=== PATIENT | female | born 1955 | race Caucasian/White ===

== ENCOUNTER 2017-02-17 12:55 | Inpatient (IN) | payer OTHER ==
[~2017-02-17] VITALS: Ht 149.9 cm; Wt 57.9 kg
[2017-02-17] MEDS ORDERED: SODIUM CHLORIDE 0.9% 1,000 ML IV ONE (13:56)
[2017-02-17] MEDS ORDERED: LORazepam 2 MG/ML, 1ML IVPush PRN (14:00)
[2017-02-17] MEDS ORDERED: ONDANSETRON 2MG/ML, 2ML IVPush ONE (14:00)
[2017-02-17] MEDS ORDERED: SODIUM CHLORIDE FLUSH 10ML SYR IVF ONE (14:00)
[2017-02-17] MEDS ORDERED: THIAMINE 100 MG in SODIUM CHLORIDE 0.9% 50 ML IVPB ONE (14:30)
[2017-02-17] MEDS ORDERED: ONDANSETRON ODT 4 MG ONE (14:51)
[2017-02-17] MEDS ORDERED: THIAMINE 100MG TABLET ONE (14:51)
[2017-02-17] MEDS ORDERED: LORazepam 1MG TABLET ONE (14:52)
[2017-02-17 14:53] LABS: HEMATOCRIT 34.8 % (34.6-47.8); HEMOGLOBIN 11.9 g/dL (11.7-16.4); WHITE BLOOD COUNT 6.8 x10^3/uL (3.4-10)
[2017-02-17] MEDS ORDERED: ONDANSETRON ODT 4 MG PO ONE (15:00)
[2017-02-17] MEDS ORDERED: LORazepam 1MG TABLET PO ONE (15:00)
[2017-02-17] MEDS ORDERED: THIAMINE 100MG TABLET PO ONE (15:00)
[2017-02-17 15:48] LABS: ASPARTATE AMINO TRANSFERASE 128 U/L (15-37); BLOOD UREA NITROGEN 10 mg/dL (7-18)
[2017-02-17] MEDS ORDERED: POTASSIUM CHLORIDE 40 MEQ in SODIUM CHLORIDE 0.9% 1,000 ML IV ONE (16:20)
[2017-02-17] MEDS ORDERED: D5 IV SCH (16:59)
[2017-02-17] MEDS ORDERED: NACL IV SCH (16:59)
[2017-02-17] MEDS ORDERED: MVI ADULT IV SCH (16:59)
[2017-02-17] MEDS ORDERED: MAGNESIUM SULFATE IV SCH (16:59)
[2017-02-17] MEDS ORDERED: ENALAPRILAT 1.25 MG/ML, 2ML IVPush PRN (17:00)
[2017-02-17] MEDS ORDERED: POLYETHYLENE GLYCOL 17 GM PACKET PO PRN (17:00)
[2017-02-17] MEDS ORDERED: DOCUSATE 100 MG CAPSULE PO PRN (17:00)
[2017-02-17] MEDS ORDERED: ONDANSETRON 2MG/ML, 2ML IVPush PRN (17:00)
[2017-02-17] MEDS ORDERED: SODIUM CHLORIDE FLUSH 10ML SYR IVF PRN (17:00)
[2017-02-17] MEDS ORDERED: BISACODYL 10 MG SUPP PR PRN (17:00)
[2017-02-17] MEDS ORDERED: LABETALOL 5MG/ML, 20ML IVPush PRN (17:00)
[2017-02-17 17:58] LABS: ACETAMINOPHEN < 2 mcg/mL (10-30)
[2017-02-17] MEDS: LACTATED RINGERS 1,000 ML IV SCH (19:26)
[2017-02-17 19:29] VITALS: BP 133/74
[2017-02-17] MEDS ORDERED: POTASSIUM CHLORIDE 40 MEQ in SODIUM CHLORIDE 0.9% 500 ML IV ONE (20:00)
[2017-02-18] MEDS: LACTATED RINGERS 1,000 ML IV SCH ×2 (01:00→23:26)
[2017-02-18 02:00] VITALS: BP 100/58
[2017-02-18 02:04] LABS: DAU SCREEN DISCLAIMER
[2017-02-18 05:04] LABS: HEMATOCRIT 34.4 % (34.6-47.8); HEMOGLOBIN 11.8 g/dL (11.7-16.4); WHITE BLOOD COUNT 6.3 x10^3/uL (3.4-10)
[2017-02-18 05:48] LABS: ASPARTATE AMINO TRANSFERASE 110 U/L (15-37); BLOOD UREA NITROGEN 7 mg/dL (7-18)
[2017-02-18] MEDS ORDERED: POTASSIUM CHLORIDE 40 MEQ in SODIUM CHLORIDE 0.9% 500 ML IV ONE (07:30)
[2017-02-18 08:35] VITALS: BP 101/56
[2017-02-18] MEDS: CEFTRIAXONE PMX 1GM/50ML 50 ML IV SCH (11:08)
[2017-02-18 14:30] VITALS: BP 101/57
[2017-02-18 19:54] VITALS: BP 100/63
[2017-02-19 02:45] VITALS: BP 120/72
[2017-02-19 05:11] LABS: HEMATOCRIT 32.8 % (34.6-47.8); HEMOGLOBIN 11.1 g/dL (11.7-16.4); WHITE BLOOD COUNT 5.8 x10^3/uL (3.4-10)
[2017-02-19 05:27] LABS: ASPARTATE AMINO TRANSFERASE 99 U/L (15-37); BLOOD UREA NITROGEN 4 mg/dL (7-18)
[2017-02-19] MEDS: LACTATED RINGERS 1,000 ML IV SCH ×2 (05:58→16:13)
[2017-02-19] MEDS ORDERED: LORazepam 1MG TABLET ONE (06:15)
[2017-02-19] MEDS ORDERED: LORazepam 0.5MG TABLET PO ONE (06:30)
[2017-02-19 08:50] VITALS: BP 118/69
[2017-02-19] MEDS ORDERED: GABAPENTIN 300 MG CAPSULE PO ONE (11:00)
[2017-02-19] MEDS: CHLORDIAZEPOXIDE 25 MG CAPSULE PO SCH (11:41)
[2017-02-19] MEDS: CEFTRIAXONE PMX 1GM/50ML 50 ML IV SCH (11:54)
[2017-02-19 15:30] VITALS: BP 101/67
[2017-02-19] MEDS: GABAPENTIN 300 MG CAPSULE PO SCH ×2 (16:12→20:22)
[2017-02-19 20:03] VITALS: BP 102/69
[2017-02-20 02:28] VITALS: BP 97/65
[2017-02-20] MEDS: LACTATED RINGERS 1,000 ML IV SCH ×2 (05:51→21:01)
[2017-02-20 06:29] LABS: HEMATOCRIT 32.5 % (34.6-47.8); WHITE BLOOD COUNT 6.2 x10^3/uL (3.4-10)
[2017-02-20 06:42] LABS: BLOOD UREA NITROGEN 5 mg/dL (7-18)
[2017-02-20 06:43] VITALS: BP 86/46
[2017-02-20 06:47] LABS: ASPARTATE AMINO TRANSFERASE 93 U/L (15-37)
[2017-02-20] MEDS ORDERED: SODIUM CHLORIDE 0.9% 1,000ML IVBOLUS ONE (07:30)
[2017-02-20 08:33] VITALS: BP 89/61
[2017-02-20] MEDS: CHLORDIAZEPOXIDE 25 MG CAPSULE PO SCH (09:00)
[2017-02-20] MEDS: GABAPENTIN 300 MG CAPSULE PO SCH ×3 (09:49→20:59)
[2017-02-20] MEDS: CEFTRIAXONE PMX 1GM/50ML 50 ML IV SCH (11:44)
[2017-02-20 11:55] VITALS: BP 101/68
[2017-02-20 14:40] VITALS: BP 115/44
[2017-02-20] MEDS ORDERED: LORazepam 1MG TABLET PO PRN ×3 (16:30)
[2017-02-20] MEDS ORDERED: LORazepam 2 MG/ML, 1ML IV PRN ×5 (16:30)
[2017-02-20] MEDS ORDERED: MAGNESIUM SULFATE PMX 2GM/50ML 50 ML IV ONE (17:00)
[2017-02-20] MEDS: LORazepam 1MG TABLET PO PRN (17:28)
[2017-02-20] MEDS: FOLIC ACID 1 MG TABLET PO SCH (17:28)
[2017-02-20] MEDS: THIAMINE 100 MG/ML, 2ML IM SCH (17:28)
[2017-02-20] MEDS: MULTIVITAMIN 1 TABLET PO SCH (17:28)
[2017-02-20 18:46] VITALS: BP 110/72
[2017-02-20] MEDS ORDERED: IBUPROFEN 200 MG TABLET PO PRN (19:00)
[2017-02-20] MEDS: LACTULOSE 20 GM/30 ML UDC PO SCH (21:00)
[2017-02-20] MEDS: ALBUMIN HUMAN 25% 100 ML IV SCH (21:00)
[2017-02-21 01:43] VITALS: BP 94/64
[2017-02-21] MEDS ORDERED: METRONIDAZOLE PMX 500MG/100ML 100 ML IV SCH (03:00)
[2017-02-21] MEDS: ALBUMIN HUMAN 25% 100 ML IV SCH ×4 (03:22→22:08)
[2017-02-21 05:53] LABS: HEMATOCRIT 28.8 % (34.6-47.8); HEMOGLOBIN 9.8 g/dL (11.7-16.4); WHITE BLOOD COUNT 8.4 x10^3/uL (3.4-10)
[2017-02-21 05:59] LABS: BLOOD UREA NITROGEN 6 mg/dL (7-18)
[2017-02-21 06:03] LABS: ASPARTATE AMINO TRANSFERASE 72 U/L (15-37)
[2017-02-21 06:58] VITALS: BP 88/56
[2017-02-21] MEDS: LACTULOSE 20 GM/30 ML UDC PO SCH ×2 (09:41→21:00)
[2017-02-21] MEDS: MULTIVITAMIN 1 TABLET PO SCH (09:41)
[2017-02-21] MEDS: FOLIC ACID 1 MG TABLET PO SCH (09:41)
[2017-02-21] MEDS: GABAPENTIN 300 MG CAPSULE PO SCH ×3 (09:41→21:00)
[2017-02-21] MEDS: THIAMINE 100 MG/ML, 2ML IM SCH (09:43)
[2017-02-21] MEDS ORDERED: POTASSIUM CHLORIDE 20 MEQ TAB.ER.PRT PO ONE (10:00)
[2017-02-21] MEDS: metroNIDAZOLE 500 MG TABLET PO SCH ×3 (11:12→21:00)
[2017-02-21] MEDS: LACTATED RINGERS 1,000 ML IV SCH (11:13)
[2017-02-21] MEDS: LORazepam 0.5MG TABLET PO PRN ×2 (11:51→23:02)
[2017-02-21] MEDS: LORazepam 1MG TABLET PO PRN (11:51)
[2017-02-21 13:26] VITALS: BP 112/72
[2017-02-21] MEDS: ERGOCALCIFEROL 50,000 UNIT CAPSULE PO SCH (17:11)
[2017-02-21 18:51] VITALS: BP 111/71
[2017-02-21 21:46] VITALS: BP 89/57
[2017-02-21] MEDS ORDERED: SODIUM CHLORIDE 0.9%, 500ML IVBOLUS ONE (22:00)
[2017-02-21] MEDS ORDERED: FUROSEMIDE 20 MG/2 ML IV ONE (22:00)
[2017-02-21 23:04] VITALS: BP 115/71
[2017-02-22] MEDS: LACTATED RINGERS 1,000 ML IV SCH ×2 (00:09→13:32)
[2017-02-22 01:38] VITALS: BP 98/64
[2017-02-22 04:55] VITALS: BP 94/59
[2017-02-22 07:03] VITALS: BP 93/59
[2017-02-22 09:03] LABS: BLOOD UREA NITROGEN 8 mg/dL (7-18)
[2017-02-22 09:14] LABS: HEMATOCRIT 31.9 % (34.6-47.8); HEMOGLOBIN 10.7 g/dL (11.7-16.4)
[2017-02-22] MEDS: FUROSEMIDE 20 MG TABLET PO SCH (09:29)
[2017-02-22] MEDS: GABAPENTIN 300 MG CAPSULE PO SCH ×3 (09:29→22:00)
[2017-02-22] MEDS: FOLIC ACID 1 MG TABLET PO SCH (09:29)
[2017-02-22] MEDS: metroNIDAZOLE 500 MG TABLET PO SCH ×3 (09:29→22:00)
[2017-02-22] MEDS: THIAMINE 100 MG/ML, 2ML IM SCH (09:30)
[2017-02-22] MEDS: LORazepam 0.5MG TABLET PO PRN (09:32)
[2017-02-22] MEDS: LACTOBACILLUS CHEW TABLET PO SCH ×3 (09:38→22:00)
[2017-02-22] MEDS: MULTIVITAMIN 1 TABLET PO SCH (09:45)
[2017-02-22] MEDS: PANTOPROZOLE 40MG TABLET PO SCH ×2 (11:05→22:00)
[2017-02-22 12:25] LABS: OCCBLD OBC PASS
[2017-02-22 12:44] VITALS: BP 97/65
[2017-02-22] MEDS ORDERED: FUROSEMIDE 20 MG/2 ML IV ONE (14:00)
[2017-02-22] MEDS ORDERED: FUROSEMIDE 40 MG/4 ML ONE (14:22)
[2017-02-22 15:24] LABS: HEMATOCRIT 29.9 % (34.6-47.8); HEMOGLOBIN 10.2 g/dL (11.7-16.4)
[2017-02-22] MEDS ORDERED: ALBUTEROL/IPRATROPIUM 2.5MG/0.5MG, 3 ML NPPB PRN (16:30)
[2017-02-22 18:43] VITALS: BP 108/70
[2017-02-23 00:22] VITALS: BP 119/73
[2017-02-23 05:33] LABS: HEMATOCRIT 30.2 % (34.6-47.8); HEMOGLOBIN 10.4 g/dL (11.7-16.4); WHITE BLOOD COUNT 11.9 x10^3/uL (3.4-10)
[2017-02-23 05:56] LABS: ASPARTATE AMINO TRANSFERASE 64 U/L (15-37); BLOOD UREA NITROGEN 9 mg/dL (7-18)
[2017-02-23 06:38] VITALS: BP 93/59
[2017-02-23] MEDS ORDERED: MAGNESIUM SULFATE PMX 4GM/100M 100 ML IV ONE (09:00)
[2017-02-23] MEDS ORDERED: POTASSIUM CHLORIDE 40 MEQ in SODIUM CHLORIDE 0.9% 500 ML IV ONE (09:30)
[2017-02-23] MEDS: MULTIVITAMIN 1 TABLET PO SCH (09:59)
[2017-02-23] MEDS: LACTULOSE 20 GM/30 ML UDC PO SCH ×2 (09:59→19:58)
[2017-02-23] MEDS: THIAMINE 100 MG/ML, 2ML IM SCH (09:59)
[2017-02-23] MEDS: metroNIDAZOLE 500 MG TABLET PO SCH ×2 (10:00→17:15)
[2017-02-23] MEDS: FOLIC ACID 1 MG TABLET PO SCH (10:00)
[2017-02-23] MEDS: GABAPENTIN 300 MG CAPSULE PO SCH (10:00)
[2017-02-23] MEDS: FUROSEMIDE 20 MG TABLET PO SCH (10:00)
[2017-02-23] MEDS: LACTOBACILLUS CHEW TABLET PO SCH ×3 (10:00→19:58)
[2017-02-23] MEDS: PANTOPROZOLE 40MG TABLET PO SCH ×2 (10:00→21:54)
[2017-02-23] MEDS: POTASSIUM CHLORIDE 20 MEQ TAB.ER.PRT PO SCH ×2 (11:32→17:15)
[2017-02-23] MEDS: LORazepam 0.5MG TABLET PO PRN (11:49)
[2017-02-23 12:25] VITALS: BP 108/65
[2017-02-23 19:36] VITALS: BP 102/68
[2017-02-23] MEDS: RIFAXIMIN 550 MG TABLET PO SCH (19:58)
[2017-02-24] MEDS: metroNIDAZOLE 500 MG TABLET PO SCH ×3 (01:20→16:58)
[2017-02-24 01:33] VITALS: BP 106/66
[2017-02-24] MEDS: LORazepam 1MG TABLET PO PRN (04:58)
[2017-02-24 05:31] LABS: HEMATOCRIT 31.4 % (34.6-47.8); HEMOGLOBIN 10.7 g/dL (11.7-16.4); WHITE BLOOD COUNT 9.3 x10^3/uL (3.4-10)
[2017-02-24 05:54] LABS: ASPARTATE AMINO TRANSFERASE 79 U/L (15-37); BLOOD UREA NITROGEN 7 mg/dL (7-18)
[2017-02-24 06:42] VITALS: BP 96/65
[2017-02-24] MEDS: LACTULOSE 20 GM/30 ML UDC PO SCH (08:24)
[2017-02-24] MEDS: FOLIC ACID 1 MG TABLET PO SCH (08:24)
[2017-02-24] MEDS: PANTOPROZOLE 40MG TABLET PO SCH ×2 (08:24→19:59)
[2017-02-24] MEDS: MULTIVITAMIN 1 TABLET PO SCH (08:24)
[2017-02-24] MEDS: LACTOBACILLUS CHEW TABLET PO SCH ×3 (08:24→19:59)
[2017-02-24] MEDS: RIFAXIMIN 550 MG TABLET PO SCH ×2 (08:24→19:59)
[2017-02-24] MEDS: FUROSEMIDE 20 MG TABLET PO SCH (08:24)
[2017-02-24] MEDS: POTASSIUM CHLORIDE 20 MEQ TAB.ER.PRT PO SCH ×2 (08:24→17:30)
[2017-02-24] MEDS: THIAMINE 100 MG/ML, 2ML IM SCH (08:25)
[2017-02-24 12:24] VITALS: BP 101/68
[2017-02-24] MEDS: ENOXAPARIN 40 MG/0.4 ML SQ SCH (14:40)
[2017-02-24 20:00] VITALS: BP 102/70
[2017-02-25] MEDS: metroNIDAZOLE 500 MG TABLET PO SCH ×3 (01:38→17:03)
[2017-02-25 02:00] VITALS: BP 94/54
[2017-02-25 05:18] LABS: HEMATOCRIT 31.1 % (34.6-47.8); HEMOGLOBIN 10.4 g/dL (11.7-16.4); WHITE BLOOD COUNT 11.3 x10^3/uL (3.4-10)
[2017-02-25 05:53] LABS: ASPARTATE AMINO TRANSFERASE 90 U/L (15-37); BLOOD UREA NITROGEN 7 mg/dL (7-18)
[2017-02-25 07:25] VITALS: BP 98/62
[2017-02-25] MEDS ORDERED: MAGNESIUM SULFATE PMX 4GM/100M 100 ML IV ONE (07:30)
[2017-02-25] MEDS: RIFAXIMIN 550 MG TABLET PO SCH ×2 (09:44→21:24)
[2017-02-25] MEDS: FOLIC ACID 1 MG TABLET PO SCH (09:44)
[2017-02-25] MEDS: POTASSIUM CHLORIDE 20 MEQ TAB.ER.PRT PO SCH ×2 (09:44→17:03)
[2017-02-25] MEDS: LACTOBACILLUS CHEW TABLET PO SCH ×3 (09:44→21:24)
[2017-02-25] MEDS: FUROSEMIDE 20 MG TABLET PO SCH (09:45)
[2017-02-25] MEDS: PANTOPROZOLE 40MG TABLET PO SCH ×2 (09:45→21:24)
[2017-02-25] MEDS: THIAMINE 100 MG/ML, 2ML IM SCH (09:45)
[2017-02-25] MEDS: LACTULOSE 20 GM/30 ML UDC PO SCH (09:45)
[2017-02-25] MEDS: MULTIVITAMIN 1 TABLET PO SCH (09:46)
[2017-02-25 12:52] VITALS: BP 97/63
[2017-02-25] MEDS: ENOXAPARIN 40 MG/0.4 ML SQ SCH (14:00)
[2017-02-25 20:31] VITALS: BP 91/63
[2017-02-26] MEDS: metroNIDAZOLE 500 MG TABLET PO SCH ×3 (01:43→18:34)
[2017-02-26 03:47] VITALS: BP 102/65
[2017-02-26 05:19] LABS: BLOOD UREA NITROGEN 6 mg/dL (7-18); HEMATOCRIT 33.2 % (34.6-47.8); HEMOGLOBIN 11.1 g/dL (11.7-16.4); WHITE BLOOD COUNT 13.1 x10^3/uL (3.4-10)
[2017-02-26 05:24] LABS: ASPARTATE AMINO TRANSFERASE 84 U/L (15-37)
[2017-02-26 08:58] VITALS: BP 90/53
[2017-02-26] MEDS: MULTIVITAMIN 1 TABLET PO SCH (09:13)
[2017-02-26] MEDS: RIFAXIMIN 550 MG TABLET PO SCH ×2 (09:13→21:00)
[2017-02-26] MEDS: FOLIC ACID 1 MG TABLET PO SCH (09:13)
[2017-02-26] MEDS: FUROSEMIDE 20 MG TABLET PO SCH (09:13)
[2017-02-26] MEDS: PANTOPROZOLE 40MG TABLET PO SCH (09:14)
[2017-02-26] MEDS: LACTOBACILLUS CHEW TABLET PO SCH ×3 (09:14→21:00)
[2017-02-26] MEDS: POTASSIUM CHLORIDE 20 MEQ TAB.ER.PRT PO SCH (09:14)
[2017-02-26] MEDS: THIAMINE 100 MG/ML, 2ML IM SCH (09:14)
[2017-02-26] MEDS: LACTULOSE 20 GM/30 ML UDC PO SCH (09:14)
[2017-02-26 13:05] VITALS: BP 102/67
[2017-02-26] MEDS: ENOXAPARIN 40 MG/0.4 ML SQ SCH (14:20)
[2017-02-26 19:15] VITALS: BP 99/65
[2017-02-27 00:34] VITALS: BP_SYST 88; BP_SYST 89; BP_DIAS 55; BP_DIAS 62
[2017-02-27] MEDS: metroNIDAZOLE 500 MG TABLET PO SCH ×3 (01:11→17:24)
[2017-02-27 07:10] VITALS: BP 93/58
[2017-02-27 07:11] LABS: HEMATOCRIT 32.5 % (34.6-47.8); HEMOGLOBIN 10.8 g/dL (11.7-16.4); WHITE BLOOD COUNT 13.8 x10^3/uL (3.4-10)
[2017-02-27 07:27] LABS: BLOOD UREA NITROGEN 7 mg/dL (7-18)
[2017-02-27] MEDS ORDERED: PANTOPROZOLE 40MG TABLET PO SCH (07:30)
[2017-02-27] MEDS: THIAMINE 100 MG/ML, 2ML IM SCH (09:00)
[2017-02-27] MEDS: LACTULOSE 20 GM/30 ML UDC PO SCH (09:46)
[2017-02-27] MEDS: FOLIC ACID 1 MG TABLET PO SCH (09:47)
[2017-02-27] MEDS: MULTIVITAMIN 1 TABLET PO SCH (09:47)
[2017-02-27] MEDS: RIFAXIMIN 550 MG TABLET PO SCH ×2 (09:47→20:15)
[2017-02-27] MEDS: LACTOBACILLUS CHEW TABLET PO SCH ×3 (09:47→20:15)
[2017-02-27] MEDS: THIAMINE 100MG TABLET PO SCH (12:00)
[2017-02-27 12:31] VITALS: BP 102/70
[2017-02-27] MEDS ORDERED: MULT1TAB60 PO (16:29)
[2017-02-27] MEDS ORDERED: METR500T PO (16:29)
[2017-02-27] MEDS ORDERED: ACID1TAB7 PO (16:29)
[2017-02-27] MEDS ORDERED: RIFA550T4 PO (16:29)
[2017-02-27] MEDS ORDERED: THIA100T6 PO (16:29)
[2017-02-27] MEDS ORDERED: LACT20SO13 PO (16:29)
[2017-02-27] MEDS ORDERED: TRAM50TA2 PO (16:29)
[2017-02-27] MEDS ORDERED: ERGO500017 PO (16:29)
[2017-02-27] MEDS ORDERED: FOLI-17 PO (16:29)
[2017-02-27] MEDS: LORazepam 1MG TABLET PO PRN (17:28)
[2017-02-27 18:30] VITALS: BP 97/64
[2017-02-28] MEDS: metroNIDAZOLE 500 MG TABLET PO SCH ×2 (00:10→07:56)
[2017-02-28 00:14] VITALS: BP 114/70
[2017-02-28] MEDS: LORazepam 1MG TABLET PO PRN (05:23)
[2017-02-28 06:18] LABS: ASPARTATE AMINO TRANSFERASE 91 U/L (15-37); BLOOD UREA NITROGEN 10 mg/dL (7-18)
[2017-02-28 06:33] LABS: HEMOGLOBIN 11.1 g/dL (11.7-16.4); WHITE BLOOD COUNT 18.4 x10^3/uL (3.4-10)
[2017-02-28] MEDS: RIFAXIMIN 550 MG TABLET PO SCH ×2 (07:56→22:47)
[2017-02-28] MEDS: FOLIC ACID 1 MG TABLET PO SCH (07:56)
[2017-02-28] MEDS: THIAMINE 100MG TABLET PO SCH (07:57)
[2017-02-28] MEDS: LACTULOSE 20 GM/30 ML UDC PO SCH (07:57)
[2017-02-28] MEDS: LACTOBACILLUS CHEW TABLET PO SCH ×4 (07:57→22:47)
[2017-02-28] MEDS: MULTIVITAMIN 1 TABLET PO SCH (07:57)
[2017-02-28 10:17] VITALS: BP 100/66
[2017-02-28 12:36] VITALS: BP 99/66
[2017-02-28] MEDS: ERGOCALCIFEROL 50,000 UNIT CAPSULE PO SCH ×2 (16:00→17:40)
[2017-02-28] MEDS: SODIUM CHLORIDE 0.9% 1,000 ML IV SCH (17:40)
[2017-02-28] MEDS: CEFTRIAXONE PMX 1GM/50ML 50 ML IV SCH (17:53)
[2017-02-28] MEDS: VANCOMYCIN 50 MG/ML ORAL SUSP PO SCH ×2 (17:53→22:47)
[2017-02-28 19:28] VITALS: BP 92/65
[2017-03-01 01:09] VITALS: BP 83/52
[2017-03-01 01:39] VITALS: BP 95/60
[2017-03-01] MEDS: VANCOMYCIN 50 MG/ML ORAL SUSP PO SCH ×4 (05:00→23:41)
[2017-03-01] MEDS: SODIUM CHLORIDE 0.9% 1,000 ML IV SCH (05:00)
[2017-03-01 05:06] LABS: HEMATOCRIT 30.9 % (34.6-47.8); HEMOGLOBIN 10.5 g/dL (11.7-16.4); WHITE BLOOD COUNT 18.3 x10^3/uL (3.4-10)
[2017-03-01 05:19] LABS: ASPARTATE AMINO TRANSFERASE 92 U/L (15-37); BLOOD UREA NITROGEN 11 mg/dL (7-18)
[2017-03-01 06:59] VITALS: BP 97/61
[2017-03-01] MEDS: FOLIC ACID 1 MG TABLET PO SCH (08:40)
[2017-03-01] MEDS: RIFAXIMIN 550 MG TABLET PO SCH ×2 (08:40→23:41)
[2017-03-01] MEDS: LACTULOSE 20 GM/30 ML UDC PO SCH (08:40)
[2017-03-01] MEDS: THIAMINE 100MG TABLET PO SCH (08:40)
[2017-03-01] MEDS: LACTOBACILLUS CHEW TABLET PO SCH ×3 (08:40→23:41)
[2017-03-01] MEDS: MULTIVITAMIN 1 TABLET PO SCH (08:41)
[2017-03-01 12:42] VITALS: BP 118/78
[2017-03-01] MEDS: CEFTRIAXONE PMX 1GM/50ML 50 ML IV SCH (17:35)
[2017-03-01 18:47] VITALS: BP 96/57
[2017-03-02 01:53] VITALS: BP_SYST 96; BP_DIAS 66; BP_DIAS 86
[2017-03-02] MEDS: VANCOMYCIN 50 MG/ML ORAL SUSP PO SCH ×4 (05:23→23:03)
[2017-03-02 05:27] LABS: HEMATOCRIT 32.4 % (34.6-47.8); WHITE BLOOD COUNT 17.5 x10^3/uL (3.4-10)
[2017-03-02 05:40] LABS: BLOOD UREA NITROGEN 11 mg/dL (7-18)
[2017-03-02 05:43] LABS: ASPARTATE AMINO TRANSFERASE 87 U/L (15-37)
[2017-03-02 06:44] VITALS: BP 104/70
[2017-03-02] MEDS: FOLIC ACID 1 MG TABLET PO SCH (09:39)
[2017-03-02] MEDS: LACTULOSE 20 GM/30 ML UDC PO SCH (09:39)
[2017-03-02] MEDS: THIAMINE 100MG TABLET PO SCH (09:39)
[2017-03-02] MEDS: LACTOBACILLUS CHEW TABLET PO SCH ×3 (09:39→21:15)
[2017-03-02] MEDS: MULTIVITAMIN 1 TABLET PO SCH (09:39)
[2017-03-02] MEDS: RIFAXIMIN 550 MG TABLET PO SCH ×2 (09:39→21:15)
[2017-03-02] MEDS ORDERED: FUROSEMIDE 20 MG/2 ML IV ONE (11:30)
[2017-03-02] MEDS ORDERED: POTASSIUM CHLORIDE 10 MEQ TABLET.ER ONE (11:42)
[2017-03-02] MEDS: METRONIDAZOLE PMX 500MG/100ML 100 ML IV SCH ×2 (11:49→21:54)
[2017-03-02] MEDS: POTASSIUM CHLORIDE 20 MEQ TAB.ER.PRT PO SCH ×2 (11:50→16:57)
[2017-03-02] MEDS: SODIUM BICARBONATE 650 MG TABLET PO SCH ×2 (11:50→21:15)
[2017-03-02 12:47] VITALS: BP 105/61
[2017-03-02] MEDS: CEFTRIAXONE PMX 1GM/50ML 50 ML IV SCH (16:57)
[2017-03-02] MEDS: LORazepam 1MG TABLET PO PRN ×2 (17:45→22:01)
[2017-03-02 20:00] VITALS: BP 97/63
[2017-03-03 03:26] VITALS: BP 103/64
[2017-03-03] MEDS: VANCOMYCIN 50 MG/ML ORAL SUSP PO SCH ×4 (04:43→23:50)
[2017-03-03] MEDS: METRONIDAZOLE PMX 500MG/100ML 100 ML IV SCH ×3 (04:48→21:04)
[2017-03-03 05:30] LABS: ASPARTATE AMINO TRANSFERASE 109 U/L (15-37); BLOOD UREA NITROGEN 9 mg/dL (7-18)
[2017-03-03 06:16] LABS: HEMATOCRIT 36.4 % (34.6-47.8); HEMOGLOBIN 11.8 g/dL (11.7-16.4); WHITE BLOOD COUNT 19.6 x10^3/uL (3.4-10)
[2017-03-03] MEDS: POTASSIUM CHLORIDE 20 MEQ TAB.ER.PRT PO SCH ×2 (08:09→16:36)
[2017-03-03] MEDS: LACTOBACILLUS CHEW TABLET PO SCH ×3 (08:10→21:03)
[2017-03-03] MEDS: FOLIC ACID 1 MG TABLET PO SCH (08:10)
[2017-03-03] MEDS: MULTIVITAMIN 1 TABLET PO SCH (08:11)
[2017-03-03] MEDS: RIFAXIMIN 550 MG TABLET PO SCH ×2 (08:11→21:04)
[2017-03-03] MEDS: SODIUM BICARBONATE 650 MG TABLET PO SCH ×2 (08:11→21:00)
[2017-03-03] MEDS: THIAMINE 100MG TABLET PO SCH (08:11)
[2017-03-03] MEDS: LACTULOSE 20 GM/30 ML UDC PO SCH (08:12)
[2017-03-03 10:25] VITALS: BP 96/53
[2017-03-03 12:27] VITALS: BP 93/52
[2017-03-03] MEDS: LORazepam 1MG TABLET PO PRN (13:39)
[2017-03-03] MEDS: CEFTRIAXONE PMX 1GM/50ML 50 ML IV SCH (19:03)
[2017-03-03] MEDS ORDERED: POTASSIUM CHLORIDE 40 MEQ in SODIUM CHLORIDE 0.9% 500 ML IV ONE (19:30)
[2017-03-03 20:00] VITALS: BP 100/61
[2017-03-04] MEDS: POTASSIUM PHOSPHATE 44 MEQ in SODIUM CHLORIDE 0.9% 500 ML IV ONE ×2 (01:19→01:59)
[2017-03-04] MEDS: LORazepam 1MG TABLET PO PRN ×2 (01:19→09:50)
[2017-03-04 02:00] VITALS: BP 98/66
[2017-03-04] MEDS: METRONIDAZOLE PMX 500MG/100ML 100 ML IV SCH ×3 (05:49→21:32)
[2017-03-04] MEDS: VANCOMYCIN 50 MG/ML ORAL SUSP PO SCH ×4 (05:49→23:14)
[2017-03-04 06:26] LABS: HEMATOCRIT 34.2 % (34.6-47.8); HEMOGLOBIN 11.4 g/dL (11.7-16.4); WHITE BLOOD COUNT 16.8 x10^3/uL (3.4-10)
[2017-03-04 06:32] LABS: ASPARTATE AMINO TRANSFERASE 114 U/L (15-37); BLOOD UREA NITROGEN 9 mg/dL (7-18)
[2017-03-04 07:51] VITALS: BP 168/102
[2017-03-04] MEDS: MULTIVITAMIN 1 TABLET PO SCH (08:27)
[2017-03-04] MEDS: LACTOBACILLUS CHEW TABLET PO SCH ×3 (08:27→20:05)
[2017-03-04] MEDS: THIAMINE 100MG TABLET PO SCH (08:27)
[2017-03-04] MEDS: RIFAXIMIN 550 MG TABLET PO SCH ×2 (08:27→20:05)
[2017-03-04] MEDS: POTASSIUM CHLORIDE 20 MEQ TAB.ER.PRT PO SCH ×2 (08:28→17:00)
[2017-03-04] MEDS: FOLIC ACID 1 MG TABLET PO SCH (08:28)
[2017-03-04] MEDS: LACTULOSE 20 GM/30 ML UDC PO SCH (08:28)
[2017-03-04] MEDS: SODIUM BICARBONATE 650 MG TABLET PO SCH ×2 (08:28→21:00)
[2017-03-04] MEDS ORDERED: MAGNESIUM SULFATE PMX 2GM/50ML 50 ML IV ONE (09:00)
[2017-03-04 10:34] VITALS: BP 88/60
[2017-03-04 13:48] VITALS: BP 91/65
[2017-03-04 14:59] VITALS: BP 85/49
[2017-03-04 20:02] VITALS: BP 100/66
[2017-03-04] MEDS: CEFTRIAXONE PMX 1GM/50ML 50 ML IV SCH (20:10)
[2017-03-04] MEDS: ALBUMIN HUMAN 25% 100 ML IV SCH (23:00)
[2017-03-05 00:48] VITALS: BP 102/60
[2017-03-05] MEDS: ALBUMIN HUMAN 25% 100 ML IV SCH ×4 (04:48→23:16)
[2017-03-05] MEDS: VANCOMYCIN 50 MG/ML ORAL SUSP PO SCH ×4 (04:48→23:16)
[2017-03-05 05:41] LABS: HEMATOCRIT 33.2 % (34.6-47.8); HEMOGLOBIN 10.9 g/dL (11.7-16.4); WHITE BLOOD COUNT 13.1 x10^3/uL (3.4-10)
[2017-03-05] MEDS: METRONIDAZOLE PMX 500MG/100ML 100 ML IV SCH ×3 (06:03→22:02)
[2017-03-05 06:05] LABS: BLOOD UREA NITROGEN 8 mg/dL (7-18)
[2017-03-05 06:06] LABS: ASPARTATE AMINO TRANSFERASE 97 U/L (15-37); LACTATE DEHYDROGENASE 245 U/L (84-246)
[2017-03-05 07:18] VITALS: BP 91/67
[2017-03-05] MEDS: LACTOBACILLUS CHEW TABLET PO SCH ×4 (08:39→23:16)
[2017-03-05] MEDS: LACTULOSE 20 GM/30 ML UDC PO SCH (08:39)
[2017-03-05] MEDS: FOLIC ACID 1 MG TABLET PO SCH (08:39)
[2017-03-05] MEDS: RIFAXIMIN 550 MG TABLET PO SCH ×3 (08:40→23:16)
[2017-03-05] MEDS: MULTIVITAMIN 1 TABLET PO SCH (08:40)
[2017-03-05] MEDS: THIAMINE 100MG TABLET PO SCH (08:40)
[2017-03-05] MEDS: SODIUM BICARBONATE 650 MG TABLET PO SCH ×3 (08:40→23:17)
[2017-03-05] MEDS ORDERED: LIDOCAINE 1%, 20ML ONE (09:23)
[2017-03-05 10:20] LABS: CYTOLOGY BODY FLUID RECD INTO PATHOLOGY; CYTOLOGY BODY FLUID SOURCE PERITONEAL FLUID
[2017-03-05 11:26] LABS: CELLS COUNTED 40; DILUTION 1; WBC SQUARES COUNTED 10
[2017-03-05 14:00] VITALS: BP 102/63
[2017-03-05 19:26] VITALS: BP 99/68
[2017-03-05] MEDS: CEFTRIAXONE PMX 1GM/50ML 50 ML IV SCH (20:42)
[2017-03-06 02:26] VITALS: BP 91/64
[2017-03-06] MEDS ORDERED: SODIUM CHLORIDE 0.9%, 500ML IVBOLUS ONE (03:30)
[2017-03-06] MEDS: VANCOMYCIN 50 MG/ML ORAL SUSP PO SCH ×4 (05:34→21:30)
[2017-03-06] MEDS: METRONIDAZOLE PMX 500MG/100ML 100 ML IV SCH ×3 (05:34→21:00)
[2017-03-06 07:09] VITALS: BP 109/70
[2017-03-06 07:41] LABS: BLOOD UREA NITROGEN 6 mg/dL (7-18)
[2017-03-06 07:45] LABS: ASPARTATE AMINO TRANSFERASE 73 U/L (15-37)
[2017-03-06 08:19] LABS: HEMATOCRIT 30.8 % (34.6-47.8); HEMOGLOBIN 10.3 g/dL (11.7-16.4); WHITE BLOOD COUNT 11.5 x10^3/uL (3.4-10)
[2017-03-06] MEDS: FOLIC ACID 1 MG TABLET PO SCH (08:46)
[2017-03-06] MEDS: LACTOBACILLUS CHEW TABLET PO SCH ×3 (08:46→21:00)
[2017-03-06] MEDS: MULTIVITAMIN 1 TABLET PO SCH (08:46)
[2017-03-06] MEDS: LACTULOSE 20 GM/30 ML UDC PO SCH (08:46)
[2017-03-06] MEDS: THIAMINE 100MG TABLET PO SCH (08:47)
[2017-03-06] MEDS: RIFAXIMIN 550 MG TABLET PO SCH ×2 (08:47→21:00)
[2017-03-06] MEDS: SODIUM BICARBONATE 650 MG TABLET PO SCH (08:47)
[2017-03-06] MEDS ORDERED: LORazepam 1MG TABLET PO SCH (16:00)
[2017-03-06 16:26] VITALS: BP 96/69
[2017-03-06] MEDS ORDERED: prednisOLONE 15 MG/5 ML ORAL SOLN PO SCH (17:00)
[2017-03-06] MEDS: D5%-0.9% NACL 1,000 ML IV SCH (18:33)
[2017-03-06 18:42] LABS: ABG COLLECTION SITE LEFT RADIAL; COLLATERAL CIRCULATION TESTING NORMAL
[2017-03-06] MEDS: CEFTRIAXONE PMX 1GM/50ML 50 ML IV SCH (19:00)
[2017-03-06 20:25] VITALS: BP 86/54
[2017-03-06] MEDS ORDERED: MORPHINE SULFATE 4 MG/ML, 1ML IVPush PRN (20:30)
[2017-03-06] MEDS ORDERED: SCOPOLAMINE PATCH, 1.5MG PATCH.TD72 TD ONE (20:30)
[2017-03-06] MEDS ORDERED: LORazepam 2 MG/ML, 1ML IVPush PRN (20:30)
[2017-03-06] MEDS ORDERED: morphine SULFATE 10 MG/ML, 1ML ONE (21:31)
[2017-03-07] MEDS: METRONIDAZOLE PMX 500MG/100ML 100 ML IV SCH (04:50)
[2017-03-07] MEDS: VANCOMYCIN 50 MG/ML ORAL SUSP PO SCH (04:51)
[2017-03-07] MEDS ORDERED: morphine SULFATE 10 MG/ML, 1ML ONE (06:29)
[2017-03-07] MEDS: D5%-0.9% NACL 1,000 ML IV SCH (07:20)
[2017-03-07] MEDS ORDERED: morphine SULFATE ORAL.CONC 20 MG/ML SL PRN (10:30)
[2017-03-07] MEDS ORDERED: HALOPERIDOL 2 MG/ML ORAL SOL SL PRN (10:30)
[2017-03-07] MEDS ORDERED: SCOPOLAMINE 1MG PATCH TD PRN (10:30)
[2017-03-07] MEDS ORDERED: PROCHLORPERAZINE 25 MG SUPP PR PRN ×2 (10:30)
[2017-03-07] MEDS ORDERED: LORazepam INTENSOL 2 MG/ML SL PRN (10:30)
[2017-03-07] MEDS ORDERED: HALOPERIDOL 0.5 MG TABLET PO PRN (10:30)
[2017-03-07] MEDS ORDERED: MORPHINE SULFATE 4 MG/ML, 1ML IVPush PRN (10:30)
[2017-03-07] MEDS: LORazepam 2 MG/ML, 1ML IVPush PRN ×4 (14:22→23:25)
[2017-03-07] MEDS: morphine SULFATE 125 MG in SODIUM CHLORIDE 0.9% 237.5 ML IV PRN (17:16)
[2017-03-08] MEDS: LORazepam 2 MG/ML, 1ML IVPush PRN ×3 (02:41→15:50)
[2017-03-09] MEDS: morphine SULFATE 125 MG in SODIUM CHLORIDE 0.9% 237.5 ML IV PRN (10:11)
[2017-03-09] MEDS: LORazepam 2 MG/ML, 1ML IVPush PRN (11:21)
[2017-03-10] MEDS ORDERED: ATROPINE OPHTH SOLN 1%, 5ML BC PRN (02:30)
== END 2017-03-10 11:27 | disposition expired | DRG 432 ==
LOC: ED 15:57 → EDIP 16:51 → 4EST 18:40 → 3NW 03-07 13:56
PROVIDERS: ADMIT Hospitalist; ATTEND Hospitalist
PROC: HZ34ZZZ Individual Counseling for Substance Abuse Treatment, Interpersonal (ICD-10-PCS; 2017-02-20)
PROC: 0T9B70Z Drainage of Bladder with Drainage Device, Via Natural or Artificial Opening (ICD-10-PCS; principal; 2017-02-21)
PROC: 0W9G3ZX Drainage of Peritoneal Cavity, Percutaneous Approach, Diagnostic (ICD-10-PCS; 2017-03-05)
DX: K70.40 Alcoholic hepatic failure without coma (principal); E43 Unspecified severe protein-calorie malnutrition; K70.31 Alcoholic cirrhosis of liver with ascites; G92 Toxic encephalopathy; J90 Pleural effusion, not elsewhere classified; J18.9 Pneumonia, unspecified organism; A04.72 Enterocolitis due to Clostridium difficile, not specified as recurrent; K85.90 Acute pancreatitis without necrosis or infection, unspecified; D68.59 Other primary thrombophilia; K76.6 Portal hypertension; F10.239 Alcohol dependence with withdrawal, unspecified; N39.0 Urinary tract infection, site not specified; K72.90 Hepatic failure, unspecified without coma; W18.30XA Fall on same level, unspecified, initial encounter; E83.42 Hypomagnesemia; G62.1 Alcoholic polyneuropathy; D53.9 Nutritional anemia, unspecified; D75.89 Other specified diseases of blood and blood-forming organs; E87.6 Hypokalemia; F12.10 Cannabis abuse, uncomplicated; F32.9 Major depressive disorder, single episode, unspecified; F41.9 Anxiety disorder, unspecified; I49.3 Ventricular premature depolarization; K76.0 Fatty (change of) liver, not elsewhere classified; R29.6 Repeated falls; Y93.89 Activity, other specified; Y99.8 Other external cause status; Y92.009 Unspecified place in unspecified non-institutional (private) residence as the place of occurrence of the external cause; Z51.5 Encounter for palliative care; Z66 Do not resuscitate; Z68.25 Body mass index [BMI] 25.0-25.9, adult; G31.2 Degeneration of nervous system due to alcohol
CPT/HCPCS: 36415; 36600; 49083; 70450; 70551; 71010; 71020; 76700; 80048; 80053; 80061; 80307; 80329; 81001; 82042; 82140; 82247; 82272; 82306; 82607; 82746; 82803; 83036; 83605; 83615; 83690; 83735; 84100; 84157; 85014; 85018; 85025; 85610; 85730; 86704; 86706; 86708; 86803; 87040; 87070; 87086; 87205; 87324; 87340; 88112; 88305; 89051; 93005; 94640; 99285; J0696; J1650; J2405; J3370; J3411; J3475; J3480; J3490; J7042; P9047; Q0162; 92523-GN; G0479; G0480; J1940; J2060; J2270; J7030; J7040; J7050; J7120